=== PATIENT | female | born 1995 | race African-American/Black ===

== ENCOUNTER 2022-09-08 15:43 | Emergency (ER) | payer OTHER ==
[2022-09-08] MEDS ORDERED: LIDOCAINE PATCH 5% TOP STA (16:19)
--- NOTE | 2022-09-08 16:29 | ED Physician Documentation ---
PD HPI BACK PAIN - Stated complaint Stated Complaint: LOWER BACK PX - Chief complaint Chief Complaint: Back Pain - History obtained from History obtained from: Patient - Additional information Additional information: Patient is a 27-year-old female presenting for evaluation of low back pain that has been ongoing for the past 2-1/2 months but worsening for the past 2 days since moving here from [place]. She reports that her household goods arrived 2 days ago and she has been busy with unpacking and getting things organized and feels that her lower back pain has worsened. Feels like a sharp ache in the mid to low back and radiates to both hips. She reports associated numbness at times in bilateral upper Thighs. She denies loss of bowel or bladder incontinence, IV drug use, fevers, injections into the back. She has been using ibuprofen without any significant improvement. She denies chest pain, difficulty breathing, abdominal pain, concerns for , vomiting or diarrhea. Review of Systems Constitutional: denies: Fever Cardiac: denies: Chest pain / pressure Respiratory: denies: Dyspnea GI: denies: Abdominal Pain, Vomiting : denies: Dysuria, Incontinent Musculoskeletal: reports: Back pain Neurologic: denies: Headache PD PAST MEDICAL HISTORY - Present Medications Home Medications: Ambulatory Orders Medication Instructions Recorded Confirmed Cyclobenzaprine [Flexeril] 10 mg PO TID PRN #20 tablet 09/08/22 Lidocaine Patch 5% [Lidoderm Patch] 1 patch TOP DAILY PRN #10 patch 09/08/22 predniSONE [Deltasone] 20 mg PO [id number] #21 tab 09/08/22 - Allergies Allergies/Adverse Reactions: Allergies Allergy/AdvReac Type Severity Reaction Status Date / Time No Known Drug Allergies Allergy Verified 09/08/22 15:53 PD ED PE NORMAL - General General: Alert and oriented X 3, No acute distress, Well developed/nourished - HEENT HEENT: Atraumatic - Neck Neck: Supple, no meningeal sign, No bony TTP - Cardiac Cardiac: RRR, Strong equal pulses - Respiratory Respiratory: No respiratory distress, Clear bilaterally - Abdomen Abdomen: Soft, Non tender, Non distended - Back Back: Other (Mild midline And paraspinal low lumbar tenderness to palpation) - Derm Derm: Warm and dry - Extremities Extremities: No deformity, Normal ROM s pain - Neuro Neuro: No motor deficit, No sensory deficit Results - Vitals Vitals: Vital Signs - 24 hr 03/24/23 03/24/23 15:47 18:02 Temperature 36.4 C L Heart Rate 68 64 Respiratory 16 16 Rate Blood Pressure 129/61 101/70 O2 Saturation 98 99 Oxygen O2 Source Room air PD Medical Decision Making - ED course Complexity details: reviewed results, re-evaluated patient ED course: Patient is a 27-year-old female presenting for evaluation of low back pain for the past 2-1/2 months but worsening over the past 2 days with recently moving to the area. Her neuro exam is normal and she is ambulating without difficulty. She has no red flag signs or symptoms in regards to her back pain. She does have an upcoming PCP appointment with the [facility] in a few weeks. Although no trauma, we did discuss imaging and patient would like an x-ray as this may be helpful in proceeding with the next step if her back pain continues When she sees her new PCP.I reviewed her x-ray and it is negative for fracture or degenerative disease.Discussed options for treatment and patient is comfortable with trial of prednisone, muscle relaxers, lidocaine patches.She is counseled on concerning symptoms to return for. Departure - Departure Disposition: Home, Self Care Clinical Impression: Low back pain Condition: Stable Instructions: ED Low Back Pain Injury Prescriptions: predniSONE [Deltasone] 20 mg PO [id number] #21 tab Cyclobenzaprine [Flexeril] 10 mg PO TID PRN #20 tablet PRN Reason: Spasms Lidocaine Patch 5% [Lidoderm Patch] 1 patch TOP DAILY PRN #10 patch PRN Reason: pain Comments: You have been evaluated for low back pain. Your x-ray does not show a broken bone or degenerative changes. I have sent prescriptions to [facility] in [place] to help you with the pain. I would recommend taking it easy over the weekend. I would plan on keeping your follow-up appointment that you have scheduled in September. If anything worsens such as increased pain, weakness in your legs, trouble controlling your bowel or bladder or any other concerning symptoms please return to the emergency department. Discharge Date/Time: 09/08/22 18:05
--- NOTE | 2022-09-08 17:23 | XRAY Report ---
PROCEDURE: Lumbar Spine 2 View INDICATIONS: pain TECHNIQUE: 2 views of the lumbar spine were acquired. COMPARISON: None. FINDINGS: Bones: 5 [id number] vertebrae are present. No substantial curvature or listhesis. No vertebral body compression fracture notified. Lumbar disc heights appear maintained. Soft tissues: Overlying bowel gas pattern is normal. No suspicious soft tissue calcifications. IMPRESSION: No lumbar vertebral body compression fracture identified. If symptoms persist, follow-up radiographs and/or CT or MRI may be helpful for further evaluation. Reviewed by: Raul Farley MD on 09/08/2022 5:22 PM PDT Approved by: Raul Farley MD on 09/08/2022 5:22 PM PDT Station ID: [id number]
[2022-09-08 18:05] VITALS: BP 101/70
== END 2022-09-08 18:05 | disposition home or self-care (01) ==
LOC: ED 15:43
DX: M54.50 Low back pain, unspecified (principal)
CPT/HCPCS: 72100; 99283; 99284; A9270

== ENCOUNTER 2022-11-15 22:33 | Outpatient (CLI) | payer OTHER ==
--- NOTE | 2022-11-16 12:23 | Ultrasound Report ---
PROCEDURE: OB First Trimester w/TV INDICATIONS: SUPERVISION OF OUTSIDE/PRIOR DATING DATA: Last menstrual period (LMP): 09/07/2022. LMP-based estimated date of delivery (JOSE E): 06/06/2023. First dating scan (date and location): 11/15/2022 at [facility]. Estimated date of delivery (JOSE E) from first dating scan: 06/07/2023. The below data below was generated using the working JOSE E of 06/07/2023 TECHNIQUE: Real-time scanning was performed of the fetus and maternal pelvic organs, with image documentation. Endovaginal scanning was also performed to better visualize the fetus and maternal ovaries. COMPARISON: None. FINDINGS: Embryo: There is twin intrauterine gestations. Dichorionic and diamnionic. Fetus A: Right maternal side. The estimated gestational age is 10 weeks 6 days based on crown-rump le ngth. heart tone is present with heart rate 152 BPM. 2 subchorionic bleeds are present me asuring 2.1 x 1.1 x 2.7 cm and 1.3 x 0.8 x 3.2 cm. Fetus B: Left maternal side. A smaller gestational sac is identified. No crown-rump length is present . Based on the MGSD, the estimated age is 7 weeks 4 days. No pole. Measurement variability in dating: +/- 4 weeks by LMP, +/- 7 days by mean sac diameter (use before 6 weeks gestation if crown-rump length not able to be measured), +/- 5 days by crown-rump length (6-12 weeks gestation). Maternal organs: Ovaries . IMPRESSION: 1. Dichorionic, diamnionic twin . 2. Twin A has an estimated gestational age of 10 weeks 6 days with ultrasound JOSE E 06/07/2023. There i s a pole with heart tone. 2 small perigastric gestational bleeds are present. Recommend c linical and imaging follow-up. 3. Twin B has an estimated gestational age of 7weeks 4 days based on MGSD. No pole is present, concerning for demise. Reviewed by: An Gilliam MD on 11/16/2022 12:22 PM PDT Approved by: An Gilliam MD on 11/16/2022 12:22 PM PDT Station ID: [id number]
== END 2022-11-15 22:34 | disposition home or self-care (01) ==
LOC: DI 22:33
PROVIDERS: ATTEND Nurse Practitioner Obstetrics & Gynecology
DX: O30.041 Twin pregnancy, dichorionic/diamniotic, first trimester (principal); O20.8 Other hemorrhage in early pregnancy; Z3A.01 Less than 8 weeks gestation of pregnancy; Z3A.10 10 weeks gestation of pregnancy

== ENCOUNTER 2022-11-17 15:16 | Outpatient (CLI) | payer OTHER ==
[2022-11-17 15:31] LABS: BASOPHILS # (AUTO) 0.1 10^3/uL (0.0-0.1); BASOPHILS % (AUTO) 0.8 %; EOSINOPHILS # (AUTO) 0.1 10^3/uL (0.0-0.7); EOSINOPHILS % (AUTO) 1.7 %; HCT - HEMATOCRIT 37.7 % (37.0-47.0); HGB - HEMOGLOBIN 12.9 g/dL (12.0-16.0); LYMPHOCYTES % (AUTO) 32.6 %; MEAN CORPUSCULAR HEMOGLOBIN 27.3 pg (27.0-31.0); MEAN CORPUSCULAR HGB CONC 34.2 g/dL (32.0-36.0); MEAN CORPUSCULAR VOLUME 79.9 fL (81.0-99.0); MEAN PLATELET VOLUME 9.3 fL (7.9-10.8); MONOCYTES # (AUTO) 0.4 10^3/uL (0.0-1.0); NEUTROPHILS # (AUTO) 3.5 10^3/uL (1.5-6.6); NEUTROPHILS % (AUTO) 58.6 %; PLT - PLATELET COUNT 282 10^3/uL (130-450); RED BLOOD COUNT 4.72 10^6/uL (4.20-5.40); RED CELL DISTRIBUTION WIDTH 13.7 % (12.0-15.0)
[2022-11-18 03:09] LABS: HBsAG SCREEN Negative (Negative); HCV AB Non Reactive (Non Reactive); HIV SCREEN 4TH GENERATION Non Reactive (Non Reactive); RPR Non Reactive (Non Reactive)
[2022-11-18 08:09] LABS: VARICELLA-ZOSTER AB IGG <135 index (Immune >165)
== END 2022-11-17 15:17 | disposition home or self-care (01) ==
LOC: LAB 15:16
PROVIDERS: ATTEND Nurse Practitioner Obstetrics & Gynecology
DX: Z36.89 Encounter for other specified antenatal screening (principal)
CPT/HCPCS: 36415; 85025; 86592; 86762; 86787; 86803; 86850; 86900; 86901; 87340; 87389

== ENCOUNTER 2022-12-08 07:48 | Outpatient (CLI) | payer OTHER ==
--- NOTE | 2022-12-08 11:26 | Ultrasound Report ---
PROCEDURE: OB First Trimester w/TV INDICATIONS: SUBCHORIONIC HEMORRHAGE OUTSIDE/PRIOR DATING DATA: Last menstrual period (LMP): 09/07/2022. LMP-based estimated date of delivery (JOSE E): 06/14/2023. First dating scan (date and location): 11/15/2022. Estimated date of delivery (JOSE E) from first dating scan: 06/07/2023. The below data below was generated using the study generated JOSE E of 06/07/2023 TECHNIQUE: Real-time scanning was performed of the fetus, with image documentation and biometric measurements. Endovaginal scanning: Not indicated COMPARISON: 11/15/2022 FINDINGS: General: A single living intrauterine gestation is present. Presentation: Variable Placenta: Placental position is anterior, without previa. Amniotic fluid index : Visualized within normal limits. heart rate: 141 beats per minute. Maternal cervical canal: Closed and is visually normal in length. biometrics: Biparietal diameter: 2.36 cm, 20 weeks, 0 days. Head circumference: 9.35 cm, 14 weeks, 2 days. Abdominal circumference: 7.48 cm, 14 weeks, 0 day. Femur length: 1.19 cm, 13 weeks, 4 days. Estimated gestational age from initial scan: 14 weeks, 1 day Composite gestational age from present scan: 14 weeks, 0 day Estimated weight and percentile: 83.2 g, 14.5% Measurement variability in biometric dating: +/- 10 days from 12-20 weeks gestation, +/- 2 weeks from 20-30 weeks gestation, +/- 3 weeks at 30 weeks gestation or later. Small amount of subchorionic hemorrhage is seen. Previously noted left corpus luteal cyst has resolve d. IMPRESSION: 1. Single live intrauterine gestation with fetus in variable presentation. heart rate is 141 bp m. Estimated weight is at 14.5%. Normal amount of amniotic fluid. 2. Previously noted subchorionic hemorrhage has resolved. Previously noted left-sided corpus luteal c yst is also resolved. Reviewed by: Nemesio Win MD on 12/08/2022 11:24 AM PDT Approved by: Nemesio Win MD on 12/08/2022 11:24 AM PDT Station ID: [id number]
== END 2022-12-08 07:49 | disposition home or self-care (01) ==
LOC: DI 07:48
PROVIDERS: ATTEND Nurse Practitioner Obstetrics & Gynecology
DX: O20.8 Other hemorrhage in early pregnancy (principal); Z3A.14 14 weeks gestation of pregnancy

== ENCOUNTER 2023-01-24 13:00 | Outpatient (CLI) | payer OTHER ==
--- NOTE | 2023-01-25 08:35 | Ultrasound Report ---
PROCEDURE: OB Detailed Eval INDICATIONS: SUPERVISION OF OUTSIDE/PRIOR DATING DATA: Last menstrual period (LMP): 09/07/2022. LMP-based estimated date of delivery (JOSE E): 06/06/2023. First dating scan (date and location): 11/15/2022 at [facility]. Estimated date of delivery (JOSE E) from first dating scan: 06/07/2023. The below data below was generated using the working JOSE E of 06/07/2023 TECHNIQUE: Real-time scanning was performed of the fetus, with image documentation and biometric measurements. COMPARISON: OB ultrasound, 12/08/2022 and 11/15/2022. FINDINGS: General: A single living intrauterine gestation is present. Presentation: Variable Placenta: Placental position is anterior, without previa. Amniotic fluid index: 16.2 cm, largest pocket 5.4 cm. heart rate: 144 beats per minute. Maternal cervical canal: 3.4 cm long; normal length is 2.5 cm or more. biometrics: Biparietal diameter: 20 weeks 3 days Head circumference: 20 weeks 0 day Abdominal circumference: 20 weeks 2 days Femur length: 20 weeks 6 days Estimated gestational age from initial scan: 20 weeks 6 days Composite gestational age from present scan: 20 weeks 0 days Estimated weight and percentile: 335 g; 14.2% for gestational age. Measurement variability in biometric dating: +/- 10 days from 12-20 weeks gestation, +/- 2 weeks from 20-30 weeks gestation, +/- 3 weeks at 30 weeks gestation or later. Anatomic survey: Neuro: Ventricles are normal at less than 10 mm. Cisterna magna is normal at 3-11 mm. Cerebellum i s normal in size and morphology. Nuchal skin fold: Normal at less than 6 mm between 14 and 20 weeks gestational age. Face: Nose and lips, facial profile are normal. Spine: No evidence for spina bifida. Heart: 4-chambered heart is present, with normal ventricular outflow tracts. Diaphragm: Diaphragm is intact. Stomach: Left-sided stomach is present. Kidneys: No hydronephrosis. Normal is less than 5 mm in 2nd trimester, less than 7 mm in 3rd trimester. Cord: 3 vessel cord has orthotopic insertion. Bladder: Normal in size. Extremities: All 4 extremities are visualized. IMPRESSION: 1. A single living intrauterine gestation with interval growth within normal limits. 2. Normal THADDEUS. 3. Normal anatomic survey. 4. weight at 12.2% for gestational age. Reviewed by: An Gilliam MD on 01/25/2023 8:34 AM PDT Approved by: nA Gilliam MD on 01/25/2023 8:34 AM PDT Station ID: [id number]
== END 2023-01-24 13:01 | disposition home or self-care (01) ==
LOC: DI 13:00
PROVIDERS: ATTEND Nurse Practitioner Obstetrics & Gynecology
DX: Z34.02 Encounter for supervision of normal first pregnancy, second trimester (principal); Z36.89 Encounter for other specified antenatal screening

== ENCOUNTER 2023-02-12 16:07 | Outpatient (CLI) | payer OTHER | END 2023-02-12 16:08 | disposition home or self-care (01) | LOC: LAB 16:07 | PROVIDERS: ATTEND Nurse Practitioner Obstetrics & Gynecology | DX: R35.0 Frequency of micturition (principal) | CPT/HCPCS: 87086 ==

== ENCOUNTER 2023-03-07 15:24 | Outpatient (CLI) | payer OTHER ==
[2023-03-07 16:30] LABS: HCT - HEMATOCRIT 36.4 % (37.0-47.0); HGB - HEMOGLOBIN 12.2 g/dL (12.0-16.0); MEAN CORPUSCULAR HGB CONC 33.5 g/dL (32.0-36.0); MEAN CORPUSCULAR VOLUME 83.5 fL (81.0-99.0); MEAN PLATELET VOLUME 9.5 fL (7.9-10.8); RED BLOOD COUNT 4.36 10^6/uL (4.20-5.40); RED CELL DISTRIBUTION WIDTH 13.3 % (12.0-15.0); WHITE BLOOD COUNT 7.3 x10^3/uL (4.8-10.8)
== END 2023-03-07 15:25 | disposition home or self-care (01) ==
LOC: LAB 15:24
PROVIDERS: ATTEND Nurse Practitioner Obstetrics & Gynecology
DX: Z36.9 Encounter for antenatal screening, unspecified (principal)
CPT/HCPCS: 36415; 82950; 85027

== ENCOUNTER 2023-06-16 20:08 | Inpatient (IN) | payer OTHER ==
[2023-06-16] MEDS ORDERED: AMPICILLIN 2 GM in SODIUM CHLORIDE 0.9% MINIBAG 100 ML IV SCH (21:30)
--- NOTE | 2023-06-16 21:41 | Ultrasound Report ---
PROCEDURE: OB Limited INDICATIONS: leaking fluid OUTSIDE/PRIOR DATING DATA: Last menstrual period (LMP): 09/07/2022. LMP-based estimated date of delivery (JOSE E): 06/06/2023. First dating scan (date and location): 11/15/2022 at [facility]. Estimated date of delivery (JOSE E) from first dating scan: 06/07/2023. TECHNIQUE: Real-time scanning was performed of the fetus, with image documentation. COMPARISON: OB ultrasound, 01/24/2023. FINDINGS: Exam is for THADDEUS only. THADDEUS is 6.2 cm with the largest pocket is 2.8 cm. IMPRESSION: THADDEUS 6.2 cm. Reviewed by: An Gilliam MD on 06/16/2023 9:39 PM PST Approved by: An Gilliam MD on 06/16/2023 9:39 PM PST Station ID: [id number]
--- NOTE | 2023-06-16 21:51 | PROCEDURE REPORT ---
- HPI Diagnosis/Indication for NST: Post-dates gestation Vital Signs Temperature 36.7 C 06/16/23 20:35 Heart Rate 67 06/16/23 20:35 Respiratory Rate 16 06/16/23 20:35 Blood Pressure 131/74 H 06/16/23 20:35 Temperature 36.7 C 06/16/23 20:35 Heart Rate 67 06/16/23 20:35 Respiratory Rate 16 06/16/23 20:35 Blood Pressure 131/74 H 06/16/23 20:35 O2 Saturation If not protocol: Oxygen Flow, liters/minute - NST Procedure NST reactive. FHR baseline 120s, + accels, no decels 1 contraction appreciated by tocometry THADDEUS ordered secondary to leakage of clear vaginal discharge and reveals THADDEUS 6.8 confirming ROM at 0200 this morning. Pt will be admitted for active management.
--- NOTE | 2023-06-16 21:53 | HISTORY & PHYSICAL EXAMINATION ---
Admit History - Visit Reason Visit Reason: Membranes rupture - : 1 Parity: 0 Premature: 0 Ectopic: 0 : 0 Care: positive: [facility] Risk/History: positive: None Complications This : positive: None Smoking Status: Never smoker - Mother's Labs Mother's Blood Type: positive: B Mother's RH: positive: Positive GBS: positive: Group B Strep Positive Rubella Status: positive: Immune - HPI Diagnosis/Indication for NST: Post-dates gestation Vital Signs Temperature 36.7 C 06/16/23 20:35 Heart Rate 67 06/16/23 20:35 Respiratory Rate 16 06/16/23 20:35 Blood Pressure 131/74 H 06/16/23 20:35 Temperature 36.7 C 06/16/23 20:35 Heart Rate 67 06/16/23 20:35 Respiratory Rate 16 06/16/23 20:35 Blood Pressure 131/74 H 06/16/23 20:35 O2 Saturation If not protocol: Oxygen Flow, liters/minute - NST Procedure FHR baseline 120s, moderate variability, + accels, no decels No contractions appreciated via tocometry Meds/Allgy - Allergies Allergies/Adverse Reactions: Allergies Allergy/AdvReac Type Severity Reaction Status Date / Time No Known Drug Allergies Allergy Verified 09/08/22 15:53 Review of Systems - Constitutional Constitutional: denies: Fatigue, Fever, Chills, Malaise - Eyes Eyes: denies: Blurred vision, Spots in vision, Dipolpia - Cardiovascular Cariovascular: denies: Irregular heart rate, Palpitations, Chest pain, Edema - Respiratory Respiratory: denies: Cough, Wheezing, SOB at rest - Genitourinary Genitourinary: denies: Dysuria - Integumentary Integumentary: denies: Rash, Pruritis - Psychiatric Psychiatric: denies: Depression, Anxiety - Hematologic/Lymphatic Hematologic/Lymphatic: denies: Anemia Physical - Abdominal Exam Vital Signs: Temp Pulse Resp BP Pulse Ox O2 Flow Rate 36.7 C 67 16 131/74 H 06/16/23 20:35 06/16/23 20:35 06/16/23 20:35 06/16/23 20:35 Contraction Frequency (min/apart): occasional/rare Contraction Intensity: positive: Mild Uterine Resting Tone: positive: Soft - Monitoring Heart Rate Baseline: 120 Strip Review: positive: Category I - Presentation Presentation: positive: Vertex - Vaginal Exam Membranes: positive: Membranes ruptured Dilation (in cm): 1 Effacement (%): 70 Station: positive: -1 Cervical Position: positive: Midposition - Speculum Exam Speculum Exam Performed: positive: No Findings: positive: Gross leak, Other Plan for Labor - Plan For Labor I expect patient to be DC'd or transferred within 96 hours.: Yes Plan for Labor: HPI: Rand is a 27yo @ 41.2wks gestation by LMP c/w 10.6wk U/S who presents to [facility] with c/o vaginal leakage of fluid since this morning (06/16/2023) at 0200. She states it was a significant amount of clear fluid that required her to change her pad and underwear twice. She has not noticed additional leaking since approximately 1100 today. She denies contractions. She denies vaginal bleeding and she reports +FM. She initially presented to [facility] for NST secondary to her postdates but was evaluated for SROM secondary to her complaints of vaginal leakage of clear fluid. An THADDEUS was performed and revealed THADDEUS 6.2cm which is notably less than her THADDEUS 3 days ago which was 11.1cm and demonstrates the patient is obviously ruptured. She is noted to be GBS positive and will a be admitted to [facility] for active management. She has been a patient of [facility] for the duration of her which has been uncomplicated with the exception of initially presenting with a diamnotic-dichorionic twin with only 1 fetus viable. A follow up ultrasound 4 weeks later demonstrated normally developing healthy x 1 and her healthy continued to develop normally without concerns. Her cervix is 1/70/-1 (unchanged from office SVE 3 days ago) and vertex with ruptured membranes x 20 hours. She is supported by her Nelson today. 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 SAB x 0. Last pap 01/2021 WNL, no hx abnormal. Denies history of gonorrhea, chlamydia, genital herpes, oral herpes or any other STI. Sexual partner does NOT have HSV (oral or genital). Medical Hx: Drug exposure as a baby Surgical Hx: Knee surgery x 3, shoulder surgery x 1 Social Hx: Monogamous with male partner. Stopped drinking alcohol due to . Denies current use of tobacco, marijuana or other recreational drugs. Reports that she is safe in current relationship. 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 Family Hx: Denies family history of congenital anomalies, Cystic Fibrosis or chromosomal abnormalities. HTN-MGM, Diabetes - MGM Allergies: NKDA Medications: PNV once daily, Zyrtec PRN seasonal allergies course: B positive, antibody negative Rubella immune, varicella non-immune HIV non-reactive, RPR non-reactive Hep B neg, Hep C neg GC/CT - negative Initial U/S @ 10.6wks reveals dichorionic - diamnotic twin with only 1 viable fetus of appropriate gestational age. F/u ultrasound at 14 wks WNL with appropriate development and size for gestational age. FAS WNL. Anterior placenta, no previa. Size c/w dating (EFW 14.2%tile). 3VC. THADDEUS WNL. Glucola - 80 COVID-19 vaccine x 3 Influenza vaccine 04/06/2023 Tdap 04/06/2023 RSV 04/23/2023 GBS POSITIVE Physical exam: Normocephalic, atraumatic Heart RRR w/o M/G/R Lungs CTAB Abdomen gravid, soft, nontender EFW 3000g FHR baseline 120s, moderate variability, + accels, no decels Occasional contractions appreciated via tocometry and palpate mild SVE 1/70/-1 and vertex. SROM x 20hrs, clear fluid Bilateral LE's trace edema Mood is good Assessment: 27yo @ 41.2wks gestation by LMP c/w 10.6wk U/S SROM x 20 hrs Postdates FHR Category I GBS Positive Plan: Admit to [facility] for active management. Initial Ampicillin for GBS prophylaxis per protocol 50mcg BC misoprostol for cervical ripening with maximum 2 doses following by initiation of pitocin if not actively laboring. Type and cross x 2 units secondary to increased risk of hemorrhage secondary to prolonged rupture of membranes, postdates , and likely initiation of pitocin for induction of labor. Continuous monitoring. Jacuzzi PRN. Nitrous oxide PRN. Epidural per maternal request. Anticipate . I reviewed the above plan of care with the patient her Nelson and we discussed importance of active management at this time secondary to prolonged rupture of membranes approaching, first , postdates gestation, and non-laboring at /-. She has desired minimal intervention and would like to avoid pitocin despite reviewed risks vs benefits. Secondary to nulliparous status I am comfortable initiating misoprostol for cervical ripening as I think this would benefit labor progress moving forward before initiation of pitocin. We did discuss that I would order a maximum of 2 doses of 50mcg BC misoprostol and then I would strongly recommend initiation of pitocin for induction of labor. Patient and her partner are in agreement with the above plan. They verbalized understanding and deny further questions or concerns at this time.
[2023-06-16] MEDS: miSOPROStoL 100 MCG TABLET BC SCH (21:55)
[2023-06-16] MEDS: LACTATED RINGERS 1,000 ML IV SCH (22:36)
[2023-06-17] MEDS ORDERED: NIFEdipine 10 MG CAPSULE PO PRN ×2 (00:25→13:36)
[2023-06-17] MEDS ORDERED: SODIUM CHLORIDE FLUSH 0.9% 10 ML SYRINGE IVP PRN (00:25)
[2023-06-17] MEDS ORDERED: TRANEXAMIC ACID IN NACL 1,000 MG/100 ML BAG IV PRN (00:25)
[2023-06-17] MEDS ORDERED: TERBUTALINE 1 MG/ML VIAL SUBQ PRN (00:25)
[2023-06-17] MEDS ORDERED: miSOPROStoL 200 MCG TABLET PR PRN (00:25)
[2023-06-17] MEDS ORDERED: lidocaine 1% 20 ML MDV ID PRN (00:25)
[2023-06-17] MEDS ORDERED: miSOPROStoL 200 MCG TABLET BC PRN (00:25)
[2023-06-17] MEDS ORDERED: OXYTOCIN 10 UNIT/ML VIAL IM PRN (00:25)
[2023-06-17] MEDS ORDERED: CARBOPROST TROMETHAMINE 250 MCG/ML AMP IM PRN (00:25)
[2023-06-17] MEDS ORDERED: fentaNYL 100 MCG/2 ML VIAL IVP PRN ×2 (00:25→13:44)
[2023-06-17] MEDS ORDERED: OXYTOCIN/SODIUM CHLORIDE 500 ML IV PRN ×2 (00:25→13:36)
[2023-06-17] MEDS ORDERED: LABETALOL 20 MG/4 ML SYRINGE IVP PRN ×6 (00:25→13:36)
[2023-06-17] MEDS ORDERED: hydrALAZINE INJ 20 MG/ML VIAL IVP PRN ×4 (00:25→13:36)
[2023-06-17] MEDS ORDERED: METHYLERGONOVINE 0.2 MG/ML VIAL IM PRN (00:25)
[2023-06-17] MEDS ORDERED: LACTATED RINGERS 1,000 ML IV PRN (00:25)
[2023-06-17] MEDS ORDERED: SODIUM CHLORIDE FLUSH 0.9% 10 ML SYRINGE IVP SCH (01:00)
[2023-06-17] MEDS: AMPICILLIN 1 GM in SODIUM CHLORIDE 0.9% MINIBAG 100 ML IV SCH ×2 (02:23→07:45)
[2023-06-17] MEDS: miSOPROStoL 100 MCG TABLET BC SCH ×2 (03:00→04:18)
[2023-06-17] MEDS ORDERED: OXYTOCIN/SODIUM CHLORIDE 500 ML IV SCH (08:12)
[2023-06-17] MEDS ORDERED: ROPIVACAINE 0.2% 200 MG/100 ML BAG EP ONE (09:05)
[2023-06-17] MEDS ORDERED: LIDOCAINE 2%-EPI 1:100000 20 ML MDV ONE ×2 (09:09→10:36)
[2023-06-17] MEDS: LACTATED RINGERS 1,000 ML IV SCH ×3 (09:14→10:17)
--- NOTE | 2023-06-17 11:13 | ANESTHESIA ---
Pre-Anesthesia VS, & Labs - Diagnosis active labor pain - Procedure labor epidural Vital Signs: Temp Pulse Resp BP Pulse Ox O2 Flow Rate 36.9 C 79 18 131/74 H 06/17/23 00:46 06/17/23 00:46 06/17/23 00:46 06/16/23 20:35 Height: 5 ft 7 in Weight (kg): 112.491 kg Body Mass Index: 38.8 BMI Classification: Obese - NPO >8 hours - Is Patient ?: Yes - Lab Results Current Lab Results: Laboratory Tests 06/16/23 23:17: Blood Type B POSITIVE, Antibody Screen NEGATIVE, Crossmatch IS Only See Detail Home Medications and Allergies Active Medications Carboprost Tromethamine (Carboprost Tromethamine 250 Mcg/Ml Amp) 250 mcg IM .ONCE PRN PRN Reason: Hemorrhage Fentanyl (Fentanyl 100 Mcg/2 Ml Vial) 50 mcg IVP Q1H PRN PRN Reason: Severe Pain (score 7-10) Hydralazine HCl (Hydralazine Inj 20 Mg/Ml Vial) 5 - 10 mg IVP Q20M PRN; Protocol PRN Reason: SBP> or= 160 OR DBP> or= 110 Hydralazine HCl (Hydralazine Inj 20 Mg/Ml Vial) 10 mg IVP .ONCE PRN; Protocol PRN Reason: SBP> or= 160 OR DBP> or= 110 Ampicillin Sodium 2 gm/ Sodium (Chloride) 100 mls @ 100 mls/hr IV ONCE KASANDRA Stop: 06/17/23 21:29 Last Infusion: 06/16/23 23:35 Dose: Infused Ampicillin Sodium 1 gm/ Sodium (Chloride) 100 mls @ 200 mls/hr IV Q4HR [facility] Last Infusion: 06/17/23 08:30 Dose: Infused Lactated Ringer's (Lr) 1,000 mls @ 125 mls/hr IV .Q8H KASANDRA Last Admin: 06/17/23 10:17 Dose: 125 mls/hr Lactated Ringer's (Lr) 500 mls @ 999 mls/hr IV PRN PRN PRN Reason: PER PHYSICIAN ORDER Oxytocin/Sodium Chloride (Pitocin/Sodium Chloride) 500 mls @ 999 mls/hr IV PRN PRN; Protocol PRN Reason: POST- HEMORR PREVENTION Tranexamic Acid (Tranexamic 1,000 Mg/100ml-Nacl) 1,000 mg in 100 mls @ 600 mls/hr IV Q30M PRN PRN Reason: EBL >1200mL and within 3hr Oxytocin/Sodium Chloride (Pitocin/Sodium Chloride) 500 mls @ 2 mls/hr IV TITR KASANDRA; Protocol Last Titration: 06/17/23 10:03 Dose: 0 milliunit/min, 0 mls/hr Labetalol HCl (Labetalol 20 Mg/4 Ml Syringe) 20 - 80 mg IVP Q10M PRN; Protocol PRN Reason: SBP> or= 160 OR DBP> or= 110 Labetalol HCl (Labetalol 20 Mg/4 Ml Syringe) 20 mg IVP .ONCE PRN; Protocol PRN Reason: SBP> or= 160 OR DBP> or= 110 Labetalol HCl (Labetalol 20 Mg/4 Ml Syringe) 20 - 40 mg IVP Q10M PRN; Protocol PRN Reason: SBP> or= 160 OR DBP> or= 110 Lidocaine HCl (Lidocaine 1% 20 Ml Mdv) 20 ml ID .ONCE PRN PRN Reason: PERINEAL REPAIR Stop: 06/20/23 00:25 Methylergonovine Maleate (Methylergonovine 0.2 Mg/Ml Vial) 0.2 mg IM .ONCE PRN PRN Reason: Hemorrhage Misoprostol (Misoprostol 100 Mcg Tablet) 50 mcg BC Q4H KASANDRA Last Admin: 06/17/23 04:18 Dose: 50 mcg Misoprostol (Misoprostol 200 Mcg Tablet) 600 mcg BC .ONCE PRN PRN Reason: Hemorrhage Misoprostol (Misoprostol 200 Mcg Tablet) 800 mcg [place] .ONCE PRN PRN Reason: Hemorrhage Nifedipine (Nifedipine 10 Mg Capsule) 10 - 20 mg PO Q20M PRN; Protocol PRN Reason: SBP> or= 160 OR DBP> or= 110 Oxytocin (Oxytocin 10 Unit/Ml Vial) 10 unit IM .ONCE PRN PRN Reason: Step One if no IV access. Sodium Chloride (Sodium Chloride Flush 0.9% 10 Ml Syringe) 10 ml IVP PRN PRN PRN Reason: NEEDED PER PROVIDER ORDERS Sodium Chloride (Sodium Chloride Flush 0.9% 10 Ml Syringe) 10 ml IVP Q8H KASANDRA Terbutaline Sulfate (Terbutaline 1 Mg/Ml Vial) 0.25 mg SUBQ .ONCE PRN PRN Reason: Tachystole Allergies/Adverse Reactions: Allergies Allergy/AdvReac Type Severity Reaction Status Date / Time No Known Drug Allergies Allergy Verified 09/08/22 15:53 Anes History & Medical History - Anesthetic History Anesthesia Complications: reports: No previous complications Family history of Anesthesia Complications: Denies Family history of Malignant Hyperthermia: Denies - Medical History Cardiovascular: reports: None Pulmonary: reports: None Gastrointestinal: reports: None Smoking Status: Never smoker - Obstetrical History : 1 Parity: 0 Events: reports: None Complications: reports: None Exam General: Alert, Oriented x3, Cooperative Dental: WNL Mouth Openin Fingerbreadth Neck Mobility: Normal Mallampati classification: II Thyromental Distance: 4-6 cm Respiratory: Lungs clear Cardiovascular: Regular rate Plan Anesthesia Type: Epidural Consent for Procedure(s) Verified and Reviewed: Yes Code Status: Attempt Resuscitation ASA classification: 2-Mild systemic disease Is this case an emergency?: No
[2023-06-17] MEDS ORDERED: ePHEDrine 50 MG/ML VIAL IVP PRN ×2 (11:14→13:44)
[2023-06-17] MEDS ORDERED: NALOXONE 0.4 MG/ML VIAL IVP PRN ×3 (11:14→13:44)
[2023-06-17] MEDS ORDERED: NALBUPHINE 10 MG/ML AMP IVP PRN (11:14)
[2023-06-17] MEDS ORDERED: ONDANSETRON 4 MG/2 ML VIAL IVP PRN ×2 (11:14→13:44)
[2023-06-17] MEDS ORDERED: METOCLOPRAMIDE 10 MG/2 ML VIAL IVP PRN ×2 (11:14→13:44)
[2023-06-17] MEDS ORDERED: ROPIVACAINE 0.2% 200 MG/100 ML BAG EP PRN (11:14)
[2023-06-17] MEDS ORDERED: diphenhydrAMINE INJ 50 MG/ML VIAL IVP PRN (11:14)
[2023-06-17] MEDS ORDERED: LACTATED RINGERS 500 ML IV ONE (11:14)
--- NOTE | 2023-06-17 11:18 | PROVIDER PROGRESS NOTE ---
Labor Progress Note - Uterine Monitoring Uterine Monitoring Mode: positive: External toco Contraction Frequency (min/apart): 2-4 Contraction Intensity: positive: Mild to moderate Uterine Resting Tone: positive: Soft - Monitoring Monitor Mode: positive: External ultrasound Heart Rate Baseline: 125 Heart Rate Variability: positive: Moderate (6-25 bmp) Accelerations: positive: Present, 15x15 Decelerations: positive: Late, Variable, Intermittent (<50% x20 min) Strip Review: positive: Category II - Vaginal Exam Dilation (in cm): 1 Effacement (%): 90 Station: -1 Cervical Position: Midposition - Labor Progress Note Labor Progress Note/Additional Text: S: Patient crying through contractions. She feels very tired and discouraged with her lack of progress despite painful contractions. She denies vaginal bleeding or continued leakage of fluid. Her Nelson is supportive at the dside. O: FHR baseline 120s, moderate variability, + accels, occasional late decelerations which resolved since turning off pitocin SVE /-1 and vertex SROM x 33 hrs - afebrile A: 27yo @ 41.3wks gestation by LMP c/w 10.6wk U/S Postdates GBS positive FHR Category II - overall reassuring at present time P: Initiate pitocin in 30 minutes for induction of labor Consider IUPC with next SVE if unchanged. Continue Ampicillin for GBS prophylaxis per protocol Maintain epidural for pain management. Encouraged rotation in bed in peanut ball. Reviewed potential for delivery with patient secondary to intermittent Category II FHR pattern and no labor progress in addition to prolonged rupture of membranes.
--- NOTE | 2023-06-17 11:49 | PROVIDER PROGRESS NOTE ---
Labor Progress Note - Uterine Monitoring Uterine Monitoring Mode: positive: External toco Contraction Frequency (min/apart): 3-5 Contraction Intensity: positive: Mild Uterine Resting Tone: positive: Soft - Monitoring Monitor Mode: positive: External ultrasound Heart Rate Baseline: 125 Heart Rate Variability: positive: Moderate (6-25 bmp) Accelerations: positive: Present, 15x15 Decelerations: positive: None Strip Review: positive: Category I - Vaginal Exam Dilation (in cm): 1 Effacement (%): 90 Station: -1 Cervical Position: Midposition - Labor Progress Note Labor Progress Note/Additional Text: S: Breathing and crying through contractions. She has tried nitrous oxide and the jacuzzi with minimal to no relief from her pain. We reviewed my recommendation for initiation of pitocin. She has received 2 doses of 50mcg BC misoprostol without additional labor progress. We also discussed my concern that secondary to prolonged rupture of membranes her risk for infection, distress, and hemorrhage have increased. With some hesitation the patient and her partner agree to proceed with initiation of pitocin for induction of labor. In addition she is feeling like she may desire an epidural soon as she is feeling exhausted, in significant discomfort, and discouraged with her lack of progress which is making her feel like she cannot relax. Her Nelson is supportive at the bedside. O: FHR baseline 120s, moderate variability, + accels, no decels Contractions palpate mild every 3-5 minutes with soft resting tone SVE 1/90/-1 and vertex SROM x 30 hours GBS positive s/p 2 doses of ampicillin for prophylaxis per protocol A: 27yo @ 41.3wks gestation by LMP c/w 10.6wk U/S Postdates Prolonged ruptured of membranes FHR Category I GBS positive P: Initiate pitocin for induction of labor with titration per protocol. Continuous monitoring. Continue ampicillin for GBS prophylaxis Jacuzzi PRN. Nitrous oxide PRN. Epidural per maternal request. She has been typed and crossmatched x 2 units secondary to her elevated risk for hemorrhage as mentioned above. Anticipate .
[2023-06-17] MEDS ORDERED: ceFAZolin (2G) 2 GM in SODIUM CHLORIDE 0.9% MINIBAG 100 ML IV ONE (11:51)
[2023-06-17] MEDS ORDERED: AZITHROMYCIN INJ 500 MG in SODIUM CHLORIDE 0.9% 250 ML IV ONE (11:51)
[2023-06-17] MEDS ORDERED: ceFAZolin 2 GM VIAL ONE (11:51)
[2023-06-17] MEDS ORDERED: DEXAMETHASONE 4 MG/ML VIAL ONE (12:52)
[2023-06-17] MEDS ORDERED: ROPIVACAINE 0.5% PF 20 ML VIAL ONE (12:52)
[2023-06-17] MEDS ORDERED: PHENYLEPHRINE HCL 0.5 MG/5 ML AMPULE ONE (12:52)
[2023-06-17] MEDS ORDERED: ePHEDrine 50 MG/ML VIAL IVP ONE (12:52)
[2023-06-17] MEDS ORDERED: SODIUM CHLORIDE 0.9% 10 ML VIAL IVP ONE (12:59)
--- NOTE | 2023-06-17 13:11 | PROVIDER PROGRESS NOTE ---
Labor Progress Note - Uterine Monitoring Uterine Monitoring Mode: positive: External toco Contraction Frequency (min/apart): 2-5 Contraction Intensity: positive: Mild to moderate Uterine Resting Tone: positive: Soft - Monitoring Monitor Mode: positive: External ultrasound Heart Rate Baseline: 120s Heart Rate Variability: positive: Moderate (6-25 bmp) Accelerations: positive: Absent Decelerations: positive: Late, Prolonged (>2x10 min), Recurrent (>50% x20 min) Strip Review: positive: Category II - Vaginal Exam Dilation (in cm): 1 Effacement (%): 90 Station: -1 Cervical Position: Midposition - Labor Progress Note Labor Progress Note/Additional Text: S: Patient comfortable with epidural since it was replaced recently. We reviewed my strong recommendation to proceed with delivery secondary to distress as evidenced by recurrent variable and late decelerations despite the patient not actually being in active labor. Her cervical exam is unchanged and she has been ruptured x 33.5hrs. The patient and her are both in agreement with my recommendation to proceed with delivery. O: FHR baseline 120s, moderate variability, no accels, recurrent late and variable decelerations with 2 prolonged late deceleration. Contractions palpate mild to moderate every 3-5 minutes with soft resting tone SVE 1/90/-1 and vertex (unchanged) S/p Ampicillin x 3 doses for GBS prophylaxis per protocol. SROM x 33.5hrs - afebrile Pitocin discontinued and has not been restarted since discontinuation due to late decelerations. A: 27yo @ 41.3wks gestation by LMP c/w 10.6wk U/S intolerance of labor Postdates Prolonged rupture of membranes FHR Category II - nonreassuring GBS positive P: call or contact centre manager physician notified and presence requested at the bedside. I verbalized my request to proceed with a delivery and physician requests the surgical team be called per protocol. Bedside physician arrived and care was handed to her and will be overseen by [facility] convention planner physician for the remainder of her stay. I again reviewed this plan of care with the patient and her Nelson who are in agreement and they deny further questions or concerns at this time.
[2023-06-17] MEDS ORDERED: KETOROLAC 30 MG/ML VIAL ONE (13:34)
--- NOTE | 2023-06-17 13:34 | XRAY Report ---
PROCEDURE: Abdomen 1 V INDICATIONS: EMERGENT TECHNIQUE: One view of the abdomen acquired. COMPARISON: None. FINDINGS: A radiopaque marker line is seen projecting over the mid abdomen extending to the left upper quadrant and left chest. Uncertain if this is expected or external to the body. No other unexpected radiopaque foreign bodies. Unremarkable bowel gas pattern. Reviewed by: Jersey Rene MD on 06/17/2023 1:32 PM PST Approved by: Jersey Rene MD on 06/17/2023 1:32 PM PST Station ID: [id number]
[2023-06-17] MEDS ORDERED: LACTATED RINGERS 1,000 ML IV ONE (13:35)
[2023-06-17] MEDS ORDERED: CALCIUM CARBONATE CHEW 500 MG TABLET PO PRN (13:36)
[2023-06-17] MEDS ORDERED: MORPHINE 2 MG/ML CARPUJECT IVP PRN (13:44)
[2023-06-17] MEDS ORDERED: HYDROmorphone 0.5 MG/0.5 ML SYRINGE IVP PRN (13:44)
[2023-06-17] MEDS ORDERED: ATROPINE ABBOJECT 1 MG/10 ML SYRINGE IVP PRN (13:44)
[2023-06-17] MEDS ORDERED: LACTATED RINGERS 1,000 ML IV SCH (14:00)
--- NOTE | 2023-06-17 14:14 | ANESTHESIA POST OP EVALUATION ---
Anesthesia Post Eval - Post Anesthesia Eval Vitals: Last Vital Signs Temp 36.9 C 06/17/23 14:00 Pulse 89 06/17/23 14:00 Resp 16 06/17/23 14:00 BP 121/90 H 06/17/23 14:00 Pulse Ox 97 06/17/23 14:00 O2 Flow Rate CV Function Including HR & BP: Stable Pain Control: Satisfactory Nausea & Vomiting: Negative Mental Status: Baseline Respiratory Status: Airway Patent Hydration Status: Satisfactory Anesthesia Complications: None
[2023-06-17] MEDS: ACETAMINOPHEN 500 MG TABLET PO SCH ×2 (14:57→23:17)
[2023-06-17] MEDS: oxyCODONE 5 MG TABLET PO PRN ×2 (14:58→20:08)
[2023-06-17] MEDS ORDERED: oxyCODONE 5 MG TABLET PO ONE (16:32)
[2023-06-17] MEDS ORDERED: KETOROLAC 30 MG/ML VIAL IVP SCH (18:00)
--- NOTE | 2023-06-17 19:09 | PROVIDER PROGRESS NOTE ---
Subjective - Prog Note Date Prog Note Date: 06/17/23 Prog Note Time: 12:00 - Subjective Subjective: patient now with ROM 33+ hours. still 1 cm. comfortable with epidural. I was called by CNM at 1135 due to decels, remote from delivery. recommend proc eed with c section. Objective - Vital Signs/Intake & Output Vital Signs: Vital Signs x48h Temp Pulse Pulse Resp BP BP Pulse Ox 06/17/23 15:00 98.1 F 70 17 141/59 H 97 06/17/23 14:51 98.1 F 69 136/71 H 06/17/23 14:36 97.9 F 70 15 138/40 H 06/17/23 14:21 98.1 F 78 15 138/40 H 06/17/23 14:06 98.4 F 78 14 138/57 H 06/17/23 14:00 98.4 F 89 16 121/90 H 97 06/17/23 13:51 17 141/75 H 06/17/23 13:50 98.6 F 90 16 109/70 96 06/17/23 13:45 98.2 F 81 15 118/64 96 06/17/23 13:40 98.6 F 92 16 103/59 L 98 06/17/23 13:36 97.9 F 72 14 132/70 H 97 06/17/23 13:35 98.6 F 100 16 112/67 96 06/17/23 13:30 98.6 F 89 14 109/58 L 97 06/17/23 13:26 98.6 F 88 12 95/76 97 Intake & Output: Intake & Output 06/14/23 06/15/23 06/16/23 06/17/23 23:59 23:59 23:59 23:59 Intake Total 100 1436.333 Output Total 550 Balance 100 886.333 - Lab Results Other Labs: Lab Results x24hrs 06/16/23 Range/Units 23:17 Blood Type B POSITIVE Antibody Screen NEGATIVE Crossmatch IS Only See Detail Assessment/Plan - Problem List (1) intolerance to labor, delivered, current hospitalization Impression: decels of fetus remote from delivery, rom 33+ hrs. recommend c section urgently. Patient and her partner agree. c section discussed briefly. they did not have questions and agreed to proceed. consents reviewed and signed. patient readied for OR.
--- NOTE | 2023-06-17 19:15 | OPERATIVE REPORT ---
Operative Report - General Admit Date: 06/16/23 Procedure Date: 06/17/23 Planned Procedure: primary low transverse c section Pre-Op Diagnosis: intolerance to labor Procedure Performed: primary low transverse c section Post Op Diagnosis: obstructed labor - Procedure Note Primary Surgeon: Mamie Escobar MD Secondary Surgeon: Prerna José CNM Anesthesia Provider: Amanda Shaw CRNA Anesthesia Technique: Epidural, Regional block Pathology: none IV Fluids (mL): 1,200 Estimated Blood Loss (mL): 300 Urine Output (mL): 100 Indications: Patient 41+ weeks with ROM > 33 hrs now. still only 1 cm dilated. having recurrent decels. recommend urgent c section. Findings: live female infant named Robert. She weighed 3083 grams. Apgars 8/9. Uterus is consistent with obstructed labor with very elongated lower uterine segment. normal tubes and ovaries. small paratubal cysts. Complications: none - Other Other Information/Narrative: Patient was brought back for urgent c section. She did receive Ancef 2 grams and Azithromycin 500 mg prior to surgery. Vaginal prep was done in the room. Epidural was dose and provided good pain control. SCDs were on her lower legs. She already had salinas in bladder from labor. She was prepped and draped in norm al fashion. Time out was done. Anesthesia was tested. FOB was brought to room. Skin incision was made with knife and incision was stretched. Borrero scissors were used to transect the fascia. Fascia was elevated inferiorly and superiorly and rectus muscles were disected off. muscles were in midline and peritoneum was entered sharply. Zeferino retractor was placed and rolled down. U terus was examined. it was pulled way up into her abdomen and CHEIKH was very elongated c/w obstructed labor. Low transverse incision was made at top of CHEIKH. Incison was stretched. I placed my hand below baby's head and elevated her out of incision. She delivered easily and was vigorus from time of with stimulation. Cord was clamped and cut at 1 minute. Baby was handed off to heavy equipment technician. Placenta was delivered with gentle traction. Oxytocin was infused into iv. IV acess was lost as we had started the case and [employer] did a great job of seemlessly getting a new one started. Uterus contracted well. There was an extension of the incision down the right side into the vagina, which was repaired with 0 Monocryl suture. The area was from broad ligament creating a space there. The rest of the uterine incision was closed with the Monocryl suture. A second imbricating layer was placed. The rent in the broad ligament was closed with 3-0 Monocryl suture. The tubes and ovaries were examined and there was a paratubal cyst on the right that was opened with scissors. Slight cautery was done. Uterine incision was reexamined and was dry. Zeferino retractor was removed. muscles were examined and cautery was used as needed. Fascia was closed with 0 Vicryl suture. SubQ space was closed with 3-0 Monocryl suture. Skin was closed with 4-0 MOnocryl in subcuticular fashion. Gen the urgency of the case, pre-op count was not done. intra-op counts were correct. Xray was done after and was free of remaining surgical tools. This was explained to patient.
[2023-06-17] MEDS ORDERED: oxyCODONE 5 MG TABLET PO PRN (20:23)
[2023-06-17] MEDS: IBUPROFEN 600 MG TABLET PO SCH (22:05)
[2023-06-17] MEDS: SIMETHICONE CHEW 80 MG TABLET PO PRN (23:18)
[2023-06-18] MEDS: ENOXAPARIN 40 MG/0.4 ML SYRINGE SUBQ SCH (00:27)
[2023-06-18] MEDS: DOCUSATE SODIUM 100 MG CAPSULE PO SCH ×3 (00:39→22:26)
[2023-06-18] MEDS: oxyCODONE 5 MG TABLET PO PRN ×6 (00:40→22:41)
[2023-06-18] MEDS: IBUPROFEN 600 MG TABLET PO SCH ×3 (04:09→17:04)
[2023-06-18] MEDS: ACETAMINOPHEN 500 MG TABLET PO SCH ×3 (08:04→22:26)
--- NOTE | 2023-06-18 11:46 | PROVIDER PROGRESS NOTE ---
Subjective - Prog Note Date Prog Note Date: 06/18/23 Prog Note Time: 11:45 - Subjective Pt reports feeling: Improved Subjective: doing well post op. up having some breakfast. pain controlled. Objective - Vital Signs/Intake & Output Reviewed Vital Signs: Yes Vital Signs: Vital Signs x48h Temp Pulse Resp BP Pulse Ox 06/18/23 08:00 98.4 F 65 18 123/70 99 06/18/23 04:00 98.1 F 64 18 120/63 98 Intake & Output: Intake & Output 06/15/23 06/16/23 06/17/23 06/18/23 23:59 23:59 23:59 23:59 Intake Total 100 1736.333 250 Output Total 1200 726 Balance 100 536.333 -476 - Objective General Appearance: positive: No acute distress Assessment/Plan - Problem List (3) with 41 completed weeks gestation Impression: s/p c section. doing well. routine care. discharge tomorrow if still doing well.
[2023-06-18] MEDS ORDERED: IBUPROFEN 600 MG TABLET PO SCH (14:00)
[2023-06-18] MEDS: SIMETHICONE CHEW 80 MG TABLET PO PRN (22:26)
[2023-06-19] MEDS: ENOXAPARIN 40 MG/0.4 ML SYRINGE SUBQ SCH (00:20)
[2023-06-19] MEDS: oxyCODONE 5 MG TABLET PO PRN ×3 (02:57→12:24)
[2023-06-19] MEDS: IBUPROFEN 600 MG TABLET PO SCH ×2 (05:06→11:04)
[2023-06-19] MEDS: ACETAMINOPHEN 500 MG TABLET PO SCH ×2 (06:46→13:44)
[2023-06-19 09:52] VITALS: BP 125/73; O2SAT 100
--- NOTE | 2023-06-19 13:41 | DISCHARGE SUMMARY ---
"Discharge Summary Admit Date: 06/16/23 Discharge Date: 06/19/23 Discharging Provider: Mamie Escobar MD Primary Care Provider: Prerna José CNM Code Status: Attempt Resuscitation Condition at Discharge: Good Discharge Disposition: 01 Home, Self Care - DIAGNOSES Admission Diagnoses: PPROM at 41 weeks gestation. Discharge Diagnoses with Status of Each Condition: failure to progress in labor. intolerance to labor c section for delivery obstructed labor. - HPI History of Present Illness: admitted with SROM for 30+ hours. did not get past 1 cm. then Decels. - CONSULTS | PROCEDURES Procedures: primary low transverse c section. - HOSPITAL COURSE Hospital Course: admitted. started induction. got epidural. 1 cm and decels. c section done without complication. baby great. recovery and post op course normal. dc pod 2. - ALLERGIES Allergies/Adverse Reactions: Allergies Allergy/AdvReac Type Severity Reaction Status Date / Time No Known Drug Allergies Allergy Verified 09/08/22 15:53 - MEDICATIONS Home Medications: Ambulatory Orders Medication Instructions Recorded Confirmed Acetaminophen 650 mg PO Q4HR PRN #30 ea 06/19/23 Docusate Sodium 100Mg Capsule 100 - 200 mg PO BID PRN #60 cap 06/19/23 [Colace 100Mg Capsule] Ibuprofen [Motrin] 600 mg PO Q6H PRN #30 tab 06/19/23 168/Iron/Folic/Omega3 1 each PO DAILY #90 cap 06/19/23 [One-A-Day -1 Softgel] oxyCODONE [Roxicodone] 5 mg PO Q4HR PRN #10 tab 06/19/23 - PHYSICAL EXAM AT DISCHARGE Physical Exam Other/Comments: normal post op exma. some edema. wound healing well. abd normally tender. - FOLLOW UP Follow Up: in our office, 1 week. - TIME SPENT Time Spent in Discharge (Minutes): 20"
[2023-06-19] MEDS: DOCUSATE SODIUM 100 MG CAPSULE PO SCH (13:44)
--- NOTE | 2023-06-19 14:32 | Labor Flowsheet ---
Labor Flowsheet Datetime Report Generated by CPN: 06/19/2023 14:32 Datetime: 06/19/2023 08:58 VITAL SIGNS NBP Sys/Diana/Mean (mmHg): 125 : 73 : 84 Pulse: 73 COMMUNICATION LaborFlag: Labor Datetime: 06/17/2023 15:35 Membranes Ruptured Date/Time: 06/16/2023 02:00 Membranes Rupture Method: Spontaneous Amniotic Fluid Color: Clear Amniotic Fluid Amount: Moderate Amniotic Fluid Odor: None Datetime: 06/17/2023 15:05 SpO2 (%): 98 Datetime: 06/17/2023 11:56 UTERINE ACTIVITY Monitor Mode: External Monitor Interventions for UA: [place] Adjusted Frequency (min): 1-3 Quality: Moderate Duration (sec): 70-90 Resting Tone (Palpate): Relaxed ASSESSMENT A Monitor Mode: Telemetry FHR Baseline Rate : 135 Variability: Moderate 6-25 bpm Decelerations: Late Category: Category II Datetime: 06/17/2023 11:33 Exam by: ernie heber cnm Vaginal Exam Comments: no change, talk about IUPC/amnio/ Datetime: 06/17/2023 11:27 PATIENT CARE IV/Blood Work: IV Bolus Started Datetime: 06/17/2023 11:24 Patient Position/Activity: Right Lateral Datetime: 06/17/2023 11:04 Patient Care Comments: A.Heber, CNM leaves bedside Datetime: 06/17/2023 10:59 Epidural Procedure: Loading Dose Datetime: 06/17/2023 10:58 Anesthesia Comments: Pt in semi-fowlers Datetime: 06/17/2023 10:46 Temperature (C): 36.7 Temperature Route: Oral Datetime: 06/17/2023 10:32 VAGINAL EXAM Dilatation (cm): 1.0 Effacement (%): 90 Station: -1 Datetime: 06/17/2023 10:30 Pattern: Normal: <= 5 Contractions in 10 Minutes Datetime: 06/17/2023 10:03 Medication Comments: pit stopped Datetime: 06/17/2023 09:45 Monitor Interventions for FHR: Ultrasound Adjusted Datetime: 06/17/2023 09:42 Comments: UA reapplied Datetime: 06/17/2023 09:21 Pain Coping: Breathing Through Contractions Datetime: 06/17/2023 09:17 Pain Assessment Comments: nitrious stopped Datetime: 06/17/2023 09:07 ANESTHESIA Anesthesia Plans: Epidural Epidural Positioning: Sitting Datetime: 06/17/2023 09:00 Accelerations: 15X15 Datetime: 06/17/2023 08:31 Respirations: 14 PAIN Pain Scale: 7 Pain Presence: Intermittent Pain Type: Contraction Pain Location: Abdomen Datetime: 06/17/2023 08:22 MEDICATIONS Pitocin (milliunits): Started @ 2 Datetime: 06/17/2023 08:01 Contraction Comments: unable to tell d/t maternal position Datetime: 06/17/2023 07:46 Antibiotics: Ampicillin IV 1 Gm Datetime: 06/17/2023 06:29 FHR Baseline Changes: No Baseline Change Pain Relief Measures: Comfort Measures Comfort Measures: Breathing/Relaxation; Coaching; Hot Shower/Tub/Spa Datetime: 06/17/2023 06:21 Vaginal Bleeding: None Cervix, Consistency: Soft Cervix, Position: Midposition Datetime: 06/17/2023 05:21 I/O Interventions: Up to BR Datetime: 06/17/2023 04:20 Cervical Ripening Agents: Cytotec @ Datetime: 06/16/2023 23:49 Actions for Decelerations: Side to Side; IV Bolus; Provider Notified Datetime: 06/16/2023 23:30 Stage of : Labor
== END 2023-06-19 14:25 | disposition home or self-care (01) | DRG 788 ==
LOC: WFO 20:08 → FBP 20:09 → WFO 21:28 → FBP 21:30
PROVIDERS: ADMIT Nurse Practitioner Obstetrics & Gynecology; ATTEND Obstetrics & Gynecology
PROC: 3E033VJ Introduction of Other Hormone into Peripheral Vein, Percutaneous Approach (ICD-10-PCS; 2023-06-17)
PROC: 10D00Z1 Extraction of Products of Conception, Low, Open Approach (ICD-10-PCS; principal; 2023-06-17 12:15)
DX: O62.0 Primary inadequate contractions (principal); O76 Abnormality in fetal heart rate and rhythm complicating labor and delivery; Z3A.41 41 weeks gestation of pregnancy; Z37.0 Single live birth; O99.824 Streptococcus B carrier state complicating childbirth; O48.0 Post-term pregnancy
CPT/HCPCS: 36415; 59025; 74018; 76815; 86850; 86900; 86901; 86920; 99215; A9270; J1650; J2372; J2795; J7120

== ENCOUNTER 2023-12-28 13:39 | Outpatient (CLI) | payer OTHER ==
--- NOTE | 2023-12-28 21:02 | XRAY Report ---
PROCEDURE: Knee 3V RT INDICATIONS: SPRAIN OF LATERAL COLLATERAL LIGAMENT, R KNEE TECHNIQUE: 3 views of the knee(s) were acquired. COMPARISON: None. FINDINGS: Bones: No fractures or dislocations. No suspicious bony lesions. Soft tissues: No significant knee joint effusion. No suspicious soft tissue calcifications or masses . IMPRESSION: No fracture identified. Reviewed by: Joby Vasquez MD on 12/28/2023 9:01 PM PDT Approved by: Joby Vasquez MD on 12/28/2023 9:01 PM PDT Station ID: [id number]
== END 2023-12-28 13:40 | disposition home or self-care (01) ==
LOC: DI 13:39
PROVIDERS: ATTEND Physician Assistant
DX: S83.421A Sprain of lateral collateral ligament of right knee, initial encounter (principal)

== ENCOUNTER 2024-02-12 16:48 | Outpatient (CLI) | payer OTHER ==
--- NOTE | 2024-02-13 00:20 | Ultrasound Report ---
PROCEDURE: Pelvic Complete INDICATIONS: PELVIC PAIN TECHNIQUE: Real-time transabdominal scanning was performed of the pelvic organs, with image documentation. Dunia ent declined transvaginal imaging COMPARISON: None FINDINGS: Uterus: Uterus is anteverted and normal in size at 7.0 x 3.5 x 4.5 cm. The myometrium is heterogene ous. The endometrium measures 9.2 mm in combined thickness. No myometrial masses. Normal uterine va scularity. Ovaries: The right ovary measures 3.4 x 2.4 x 2.9 cm, with a calculated ovarian volume of 12 cc. Th e left ovary measures 3.5 x 2.4 x 2.3 cm, with a calculated ovarian volume of 9.8 cc. The ovaries nguyễn ve a normal sonographic appearance. Less than 12 follicles can be seen in each ovary. No adnexal ma sses are seen. There is an ovoid simple cyst in the left anterior adnexa separate from the ovary kam uring 2.3 cm. No solid component or suspicious vascular flow. Other: No free pelvic fluid. IMPRESSION: Normal uterus and ovaries. Simple, 2.3 cm left adnexal cyst with differential diagnosis of paraovarian cyst, seroma, lymphocele, peritoneal inclusion cyst, most likely benign. Reviewed by: Suze Tilley MD on 02/13/2024 12:19 AM PDT Approved by: Suze Tilley MD on 02/13/2024 12:19 AM PDT Station ID: [id number]
== END 2024-02-12 16:49 | disposition home or self-care (01) ==
LOC: DI 16:48
PROVIDERS: ATTEND Nurse Practitioner Obstetrics & Gynecology
DX: N83.292 Other ovarian cyst, left side (principal)